=== PATIENT | male | born 1945 | race Caucasian/White ===

== ENCOUNTER 2019-09-12 07:45 | Outpatient (CLI) | payer MEDICARE, SELFPAY ==
--- NOTE | ~2019-09-12 | CT_ITS ---
EXAMINATION: CT abdomen pelvis w con DATE: 09/12/2019 08:47 INDICATION: Prostate cancer TECHNIQUE: Computed tomography (CT) of the abdomen and pelvis was performed with 100 cc Omnipaque 350 intravenous contrast. Automated exposure control and iterative reconstruction technique were employe d. Exam dose: 396.96 mGy-cm total exam DLP. COMPARISON: None. FINDINGS: The lung bases are clear. Borderline heart size. Coronary artery atherosclerotic calcification. No pericardial or pleural effus ion. Small sliding hiatal hernia. The liver, gallbladder, bile ducts, spleen, pancreas and pancreatic duct as well as adrenal glands an d kidneys are unremarkable. There is mild atherosclerotic calcification of the abdominal aorta and il iac arteries but no aneurysm. No intraperitoneal or retroperitoneal or pelvic mass lesion or adenopat hy or ascites. Normal appendix. There is diverticulosis of left and right colon; no CT evidence of diverticulitis. N o bowel obstruction or intraperitoneal free air. There is prostate enlargement and calcification and mild diffuse thickening of the urinary bladder, l ikely due to some bladder outlet obstruction. Bilateral fat-containing inguinal hernias, larger on the left. There is mild to moderate anterior wedge compression fracture deformity of L1. There is severe degenerative disease at L1-2 associated mild retrolisthesis. There is moderately prom inent degenerative disc disease of the remainder of the lumbar and lumbosacral spine. There is prominent degenerative change at the apophyseal joints of the lumbar area with associated gr selina 1 anterolisthesis at L4-5. Degenerative spurring of the lower thoracic spine. Bilateral hip osteoarthritis, greater on the right. IMPRESSION: Diverticulosis of left and right colon; no CT evidence of diverticulitis Small sliding hiatal hernia Bilateral fat-containing inguinal hernias, larger on the left Degenerative changes of thoracic and lumbar spine, bilateral hips Reviewed, dictated and finalized at [facility]. Reviewed, dictated and finalized at location B. 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
--- NOTE | ~2019-09-12 | XR_ITS ---
EXAMINATION: XR chest 2V EXAM DATE: 09/12/2019 08:15 INDICATION: Prostate cancer. TECHNIQUE: Frontal and lateral projections of the chest obtained and reviewed. There is no prior reno dy for comparison. FINDINGS: The lungs are clear. There are no pleural effusions. The cardiomediastinal silhouette is within normal limits. There is no pneumothorax suspected. Mild to moderate thoracic spondylosis. T here are no osteoblastic or osteolytic lesions identified. IMPRESSION: Unremarkable chest x-ray exam. Reviewed, dictated and finalized at location A. 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
--- NOTE | ~2019-09-12 | NM_ITS ---
EXAMINATION: NM bone scan whole body DATE: 09/12/2019 11:58 INDICATION: Prostate cancer. TECHNIQUE: 25.4 mCi Tc-99m HDP was administered intravenously. Delayed whole-body scintigrams were o btained. COMPARISON: CT abdomen and pelvis 09/12/2019 FINDINGS: There is disc-centered increased activity in the upper lumbar spine and thoracic spine stephanie elating with severe degenerative disc disease by CT. There is joint-centered increased activity in th e knees, hands and wrists, shoulders, and sternoclavicular joints without radiographic comparison, li lorenzo osteoarthritis. IMPRESSION: 1. No evidence of metastatic disease. Reviewed, dictated and finalized at location A. GRAPHICAL SURVEYOR
[2019-09-12 08:37] LABS: Blood Urea Nitrogen 21 mg/dL (8-26); Estimated Glomerular Filt Rate > 60
== END 2019-09-12 07:46 | disposition home or self-care (01) ==
LOC: ANHIMG 07:57
PROVIDERS: PCP Family Medicine; Visit Provider Urology
DX: C61 Malignant neoplasm of prostate (principal); K44.9 Diaphragmatic hernia without obstruction or gangrene; K57.30 Diverticulosis of large intestine without perforation or abscess without bleeding; K40.20 Bilateral inguinal hernia, without obstruction or gangrene, not specified as recurrent; M51.36 Other intervertebral disc degeneration, lumbar region; M16.0 Bilateral primary osteoarthritis of hip
CPT/HCPCS: 71046; 74177; 78306; A9561; Q9967

== ENCOUNTER 2019-11-08 08:00 | Day surgery (SDC) | payer MEDICARE, SELFPAY ==
[2019-10-31 15:36] VITALS: BMI 22.5
--- NOTE | 2019-11-05 16:59 | P.HP_ITS ---
History of Present Illness History of Present Illness Consent: Risks, benefits, and alternatives have been discussed and questions answered. Patient agrees to proceed with procedure. Chief complaint: Prostate Ca Narrative: Stef Lau is a 74 year old male with clinically localize adenocarcinoma of prostate, scheduled for definitive pelvic IMRT. He's opted for placement of SpaceOAR to minimize risk of rectal irritation. Review of Systems Cardiovascular: Cardiovascular: Denies chest pain, Denies lightheadedness, Denies palpitations and Denies dyspnea Respiratory: Respiratory: Denies dyspnea Gastrointestinal: Gastrointestinal: Denies diarrhea, Denies nausea and Denies vomiting Genitourinary: Genitourinary: Denies hematuria and Denies dysuria Endocrine: Endocrine: Denies palpitations PMFSH Family History Family History Father Cerebrovascular accident Mother Family history of heart disease in male family member before age 55 Patient's mother is Social History Social History Smoking status: Never smoker Alcohol intake: never Meds Home Medications and Allergies Home Medications Medication Instructions Recorded Confirmed Type amlodipine-benazepril 1 cap PO DAILY 10/31/19 10/31/19 History aspirin 81 mg PO DAILY 10/31/19 10/31/19 History atorvastatin 10 mg PO DAILY 10/31/19 10/31/19 History dutasteride 0.5 mg PO DAILY 10/31/19 10/31/19 History metformin 500 mg PO BID 10/31/19 10/31/19 History tamsulosin 0.4 mg PO DAILY 10/31/19 10/31/19 History Allergies Allergy/AdvReac Type Severity Reaction Status Date / Time No Known Allergies Allergy Verified 10/31/19 15:53 Exam Const: General: no acute distress Resp: Effort & Inspection: normal respiratory effort GI: Inspection: non-distended GI Palp: No abdominal tenderness and No Guarding due to palpation present (GI) Auscultation: normal bowel sounds Assessment and Plan Assessment and plan (1) Prostate cancer: Code(s): C61 - Malignant neoplasm of prostate Status: Acute Assessment and Plan: * Placement of SpaceOAR. * Alternative treatment options (including active surveillance, radiation therapy in its various forms and androgen ablation) have been discussed. We've also discussed complications of this procedure including, but not limited to, failure to control his cancer, adverser cardiopulmonary events, rectal injury, need to convert to an open procedure, urinary incontinence and erectile dysfunction.
--- NOTE | 2019-11-08 06:24 | ECG_ITS ---
Measurements Intervals [place] Rate: 52 P: 20 AR: 256 QRS: 11 QRSD: 107 T: 9 QT: 414 QTc: 386 Interpretive Statements SINUS BRADYCARDIA WITH FIRST DEGREE AV BLOCK INCOMPLETE RIGHT BUNDLE BRANCH BLOCK BASELINE ARTIFACT- I, II, III, AVL, AVF ABNORMAL ECG Electronically Signed On 11-08-2019 8:45:49 CDT by Dariel Talavera D.O.
[2019-11-08 06:56] VITALS: BP 130/71; PULSE 58; RESP 18; TEMP 36.4; O2SAT 99
[2019-11-08] MEDS: LACTATED RINGERS 1,000 ML 30 ML IV CONT (07:20)
[2019-11-08 07:23] LABS: Glucose Point of Care 178 (65-105)
--- NOTE | 2019-11-08 07:42 | WPDHPUPDATE1 ---
History and Physical Update Update Date/Time: 11/08/19 07:42 History and Physical has been reviewed, including an updated exam of the patient. There are NO changes in the patient's condition. Risks, benefits, and alternatives have been discussed and questions answered. Patient agrees to proceed with procedure.
--- NOTE | 2019-11-08 07:47 | WPDANESEPPF ---
Anes - Initial Pre Proc Eval Procedure: Operation Date: 11/08/19 08:30 Proposed Procedures p Insertion SpaceOAR Hydrogel System - Justice Mcintyre MD Date/Time: 11/08/19 07:47 Surgeon: Justice Mcintyre MD Pre Op Diagnosis: Prostate Ca Patient Data Age: 74 Gender: M Height: 5 ft 7 in Weight: 67.7 kg Last Vital Signs Temp 36.4 C 11/08/19 06:56 Pulse 58 L 11/08/19 06:56 Resp 18 11/08/19 06:56 BP 130/71 11/08/19 06:56 Pulse Ox 99 11/08/19 06:56 Allergies Allergy/AdvReac Type Severity Reaction Status Date / Time No Known Allergies Allergy Verified 11/08/19 06:52 Home Medications Medication Instructions Recorded Confirmed Type amlodipine-benazepril 1 cap PO DAILY 10/31/19 11/08/19 History aspirin 81 mg PO DAILY 10/31/19 11/08/19 History atorvastatin 10 mg PO DAILY 10/31/19 11/08/19 History dutasteride 0.5 mg PO DAILY 10/31/19 11/08/19 History metformin 500 mg PO BID 10/31/19 11/08/19 History tamsulosin 0.4 mg PO DAILY 10/31/19 11/08/19 History Laboratory Tests 11/08/19 11/08/19 07:05 07:20 Sodium Pending Potassium Pending Chloride Pending Carbon Dioxide Pending BUN Pending Creatinine Pending Estim Creat Clear Calc Pending Estimated GFR Pending Glucose Pending POC Capillary Glucose 178 mg/dl H mg/dl (65-105) Calcium Pending Patient hx anesthesia problems: none Family hx anesthesia problems: none [facility] Past Medical History Medical History (Updated 11/08/19 @ 07:47 by Fili Doherty MD) HTN (hypertension) Hyperlipidemia MISTI (obstructive sleep apnea) Family History Family History Father Cerebrovascular accident Mother Family history of heart disease in male family member before age 55 Patient's mother is Social History Social History Smoking status: Never smoker Alcohol intake: never Anes - Eval Final PreProcedure Day of Procedure 11/08/19 07:47 Patient weight: normal Heart: regular rate and rhythm Lungs: clear to auscultation Airway: Mallampati scale class II Neurological: alert and oriented Last oral intake: >/= 8 hours ASA classification: III Emergent: no Anesthetic plan: proceed Anesthesia type and monitoring: general LMA and standard monitoring Informed Consent: The patient's anesthetic plan and its attendant risks and benefits were discussed with the patient/family/POA. Questions were solicited and answers provided to the satisfaction of the patient/family/POA.
[2019-11-08 07:57] LABS: Blood Urea Nitrogen 21 mg/dL (9-20); Calcium 9.1 mg/dL (8.4-10.2); Carbon Dioxide 26 mmol/L (22-30); Chloride 105 mmol/L (98-107); Estimated CRCL calculation 68 ml/min; Estimated Glomerular Filt Rate > 60; Glucose 171 mg/dL (75-110); Potassium 4.3 mmol/L (3.4-5.0); Sodium 137 mmol/L (137-145)
[2019-11-08] MEDS: ceFAZolin 2 GM/D5W 50 ML 2 GM/50 ML BAG IVPB (08:06)
--- NOTE | 2019-11-08 08:36 | SUR.OPER ---
ebl:0cc
[2019-11-08 08:44] VITALS: BP 114/58; PULSE 69; RESP 16; TEMP 36.1; O2SAT 98
[2019-11-08 09:00] VITALS: BP 113/57; PULSE 54; RESP 14; O2SAT 97
--- NOTE | 2019-11-08 09:04 | PM.PROC ---
Procedure Note - Detailed Date of procedure: 11/08/19 Pre-op diagnosis: Prostate Ca Post-op diagnosis: same Procedure performed: SpaceOAR placement Description of procedure: This patient has been diagnosed with prostate cancer. Patient has met with a radiation oncologist who has prescribed a course of radiation for treatment of the malignancy. Please refer to the Radiation Oncologist's note for radiation method, dose, number of fractions. After discussing with the radiation oncologist and the patient, it has been agreed upon to proceed with SpaceOAR placement. The purpose of SpaceOAR is to reduce rectal irradiation during radiation therapy by placing an absorbable polyethylene glycol (PEG) hydrogel (SpaceOAR) into perirectal fat space, thereby pushing the rectum away from the prostate. Prior to the procedure, a timeout was performed confirming the patient's identity and planned the procedure. Anesthesia was induced without complication. Antibiotics were administered prophylactically, and the patient completed an enema at home prior to the procedure. The patient was positioned in the dorsal lithotomy position. A transrectal ultrasound probe was inserted per rectum with clear visualization of the prostatic base and apex. A bilateral pudendal nerve block was performed using a standard technique (1% lidocaine solution). The needle was advanced to the mid-perineum region and an adequate dose of Lidocaine was injected. Once this area became anesthetized, the needle was advanced until it was proximal to the pudendal nerve, and an additional dose of Lidocaine was injected. Once the area was adequately anesthetized placement of Fiducials/SpaceOAR commenced. Using transperineal ultrasound needle guidance, 3 gold fiducial markers were placed within the prostatic parenchyma. The target locations were Right Base, Left Mid, and Right [place]. Ultrasound confirmed their proper location at the conclusion of placement. With these markers in place, we proceeded on to the SpaceOAR portion of the procedure. Using ultrasound guidance, an axial measurement of the space between the prostate (mid gland) and rectum was noted and measured [##mm]. SpaceOAR hydrogel was prepared as described in the container packer operator?s 'Instructions For Use'. Under transrectal ultrasound guidance, a 15 cm 18G needle was inserted, transperineal, through the rectourethralis muscle and the needle tip advanced into the perirectal fat posterior to the prostate. The needle position, and downward bevel, were confirmed in both sagittal and axial hill. 3-5cc of Sterile Saline was used to hydro-dissect the space between the Denonvilliers? fascia and anterior rectal wall. Aspiration did not yield any bleeding. With the needle tip at mid gland, the axial field was viewed to confirm the needle was not in the rectal wall -- movement of the needle tip without corresponding movement of the rectal wall confirmed perirectal placement. The assembled SpaceOAR delivery system was then attached to the 18G needle. Under ultrasound guidance in the sagittal plane, a smooth, continuous injection technique was used to dispense all 10cc of the SpaceOAR hydrogel into the space between the prostate and rectum. Optimal visualization of the needle during hydrogel administration was maintained at all times. An axial measurement of the space between the prostate (mid gland) and rectum immediately post-SpaceOAR injection was noted and measured 10mm. No suspected penetration or compromise of the rectal wall occurred. Implants: SpaceOAR gel Anesthesia: GLMA Surgeon: Justice Mcintyre MD Estimated blood loss (mL): 0 Drains: No Packing: No Pathology: none sent Complications: No immediate complications Condition: stable Disposition: PACU
--- NOTE | 2019-11-08 09:13 | SUR.PHASEI ---
DR. MARRUFO HERE AT BEDSIDE TO SEE PT
[2019-11-08 09:15] VITALS: BP 119/61; BP 136/56; PULSE 52; PULSE 76; RESP 12; RESP 16; O2SAT 100; O2SAT 97
[2019-11-08 09:45] VITALS: BP 133/58; PULSE 55; RESP 16; O2SAT 100
== END 2019-11-08 10:00 | disposition home or self-care (01) ==
PROVIDERS: Anesthesiology; PCP Family Medicine; Visit Provider Urology
PROC: (CPT 55874; principal; 2019-11-08 08:30)
DX: C61 Malignant neoplasm of prostate (principal); I10 Essential (primary) hypertension; E78.5 Hyperlipidemia, unspecified; G47.33 Obstructive sleep apnea (adult) (pediatric); Z79.82 Long term (current) use of aspirin; Z79.84 Long term (current) use of oral hypoglycemic drugs
CPT/HCPCS: 55874; 36415; 80048; 93005; A9270; J0690; J2001; J2704; J7120

== ENCOUNTER 2019-11-14 08:23 | Outpatient (CLI) | payer MEDICARE, SELFPAY ==
[2019-11-14 09:04] LABS: Basophils Absolute Auto 0.1 K/mm3 (0.0-0.1); Basophils Percent Auto 0.9 % (0.2-1.2); Eosinophils Absolute Auto 0.1 K/mm3 (0-0.3); Eosinophils Percent Auto 1.8 % (0-4.4); Hematocrit 43.2 % (42.0-52.0); Hemoglobin 14.2 g/dL (14.0-18.0); Immature Granulocyte Absolute 0.01 K/mm3 (0.00-0.031); Immature Granulocyte Percent A 0.2 % (0-0.5); Lymphocytes Absolute Auto 1.41 K/mm3 (0.9-3.2); Mean Corpuscular HGB Conc 32.9 g/dl (32-36); Mean Corpuscular Hemoglobin 30.7 pg (26-34); Mean Corpuscular Volume 93.3 fl (80-100); Mean Platelet Volume 11.3 fl (7.4-10.4); Monocytes Absolute Auto 0.6 K/mm3 (0.1-0.6); Monocytes Percent Auto 9.9 % (2.6-8.5); Neutrophils Absolute Auto 3.5 K/mm3 (1.3-6.7); Neutrophils Percent Auto 62.2 % (45.5-73.1); Platelet Count Result 164 k/mm3 (150-375); Red Blood Count 4.63 M/mm3 (4.6-6.20); Red Cell Distribution Width 11.9 % (11.5-14.5); White Blood Count 5.6 K/mm3 (4.5-10.0)
[2019-11-14 09:15] LABS: Alanine Aminotransferase 19 U/L (4-50); Albumin Level 4.4 g/dL (3.5-5.1); Alkaline Phosphatase 61 U/L (38-126); Aspartate Amino Transferase 21 U/L (17-59); Bilirubin,Total 0.7 mg/dL (0.2-1.3); Blood Urea Nitrogen 19 mg/dL (9-20); Calcium 9.8 mg/dL (8.4-10.2); Carbon Dioxide 28 mmol/L (22-30); Chloride 106 mmol/L (98-107); Estimated Glomerular Filt Rate > 60; Glucose 168 mg/dL (75-110); Potassium 4.3 mmol/L (3.4-5.0); Sodium 140 mmol/L (137-145)
[2019-11-14 09:39] LABS: Add Urine Microscopic? YES; Appearance Urine Clear (Clear); Bilirubin Urine Negative (Negative); Blood Urine 1+ (Negative); Color Urine Yellow (Yellow); Glucose Urine UA 1+ mg/dL (Negative); Ketones Urine Negative (Negative); Leukocyte Esterase Ur Trace LEU/UL (NEGATIVE); Mucus Urine Rare /lpf; Nitrate Urine Negative (Negative); Protein Urine Negative (Negative); RBC Urine 0-2 /hpf (0-2); Urobilinogen Urine Negative mg/dL (<2.0)
== END 2019-11-14 08:24 | disposition home or self-care (01) ==
PROVIDERS: PCP Family Medicine; Visit Provider Radiology Radiation Oncology
DX: C61 Malignant neoplasm of prostate (principal)
CPT/HCPCS: 36415; 80053; 81001; 85025

== ENCOUNTER 2019-11-20 08:56 | Outpatient (CLI) | payer MEDICARE, SELFPAY ==
--- NOTE | ~2019-11-20 | MR_ITS ---
EXAMINATION: MR pelvis wo/w con INDICATION: Prostate cancer TECHNIQUE: Coronal SSFSE ARC, Axial and Coronal 2D FIESTA FatSat, Axial T2 FS, Axial SSFSE BH ARC, Ax ial 3D DualEcho BH, Axial SSFSE-IR Timothy, Axial DWI b=600, pre and dynamic postcontrast Axial LAVA ARC, WATER:POST Cor LAVA-FLEX COMPARISON: CT, 09/12/2019 CONTRAST: Multihance, 13 cc FINDINGS: A 3.5 x 1.0 cm fluid collection positioned between the rectum and prostate likely reflects biopsy change. Additionally, there are punctate T1 hyperintense foci in the prostate which also likel y reflect biopsy change. There are no pathologically enlarged pelvic lymph nodes. Colonic diverticulo sis is present without evidence of diverticulitis. There is a fat-containing left inguinal hernia. Th ere are no dilated loops of bowel. IMPRESSION: 1. Changes of prostate biopsy without evidence of acute abnormality or metastatic disease. Reviewed, dictated and finalized at location B. IMPRESSION: 1. Changes of prostate biopsy without evidence of acute abnormality or metastat ic disease.
[2019-11-20 09:47] LABS: Estimated Glomerular Filt Rate > 60
== END 2019-11-20 08:57 | disposition home or self-care (01) ==
PROVIDERS: PCP Family Medicine; Visit Provider Radiology Radiation Oncology
DX: C61 Malignant neoplasm of prostate (principal)
CPT/HCPCS: 36415; 72197; A9577

== ENCOUNTER 2021-01-25 18:43 | Emergency (ER) | payer MEDICARE, SELFPAY ==
[2021-01-25 18:48] VITALS: BP 171/82; PULSE 69; RESP 18; TEMP 36.6; O2SAT 100
[2021-01-25 20:16] LABS: Add Urine Microscopic? YES; Appearance Urine Cloudy (Clear); Bilirubin Urine Negative (Negative); Blood Urine 3+ (Negative); Color Urine Red (Yellow); Glucose Urine UA 3+ mg/dL (Negative); Ketones Urine Trace mg/dL (Negative); Leukocyte Esterase Ur Negative LEU/UL (Negative); Nitrate Urine Negative (Negative); Protein Urine 3+ mg/dL (Negative); RBC Urine >75 /hpf (0-2); Urobilinogen Urine Negative mg/dL (<2.0); WBC Urine 0-3 /hpf
[2021-01-25 20:19] LABS: Specific Grav Ur 1.032 (1.001-1.035)
[2021-01-25 21:22] VITALS: BP 173/69; PULSE 63; RESP 20; O2SAT 98
[2021-01-25] MEDS: NITROFURANTOIN MONOHYD MACROCR 100 MG CAP PO (22:00)
--- NOTE | 2021-01-25 22:04 | ED.MALEGU ---
HPI - Male Genitourinary General Chief complaint: Urogenital-Male Stated complaint: hematuria Time Seen by Provider: 01/25/21 19:35 Source: patient and family Mode of arrival: ambulatory Limitations: no limitations History of Present Illness HPI Narrative: 76-year-old male Here for hematuria Patient had a history of prostate cancer that was treated last year with radiation He did well Developed urinary retention and hematuria starting yesterday, possible clots Triple-lumen [place] catheter was placed in the ER here with about 450 cc of grossly bloody urine out Related Data Home Medications Medication Instructions Recorded Confirmed amlodipine-benazepril 1 cap PO DAILY 10/31/19 11/08/19 aspirin 81 mg PO DAILY 10/31/19 11/08/19 atorvastatin 10 mg PO DAILY 10/31/19 11/08/19 dutasteride 0.5 mg PO DAILY 10/31/19 11/08/19 metformin 500 mg PO BID 10/31/19 11/08/19 tamsulosin 0.4 mg PO DAILY 10/31/19 11/08/19 Allergies Allergy/AdvReac Type Severity Reaction Status Date / Time No Known Allergies Allergy Verified 01/25/21 18:48 Review of Systems Constitutional: Constitutional: Denies fever(s) Gastrointestinal: Gastrointestinal: Denies diarrhea, Denies nausea and Denies vomiting Genitourinary: Genitourinary: Reports hematuria, Reports oliguria and Reports dysuria Neurologic: Denies dizziness and Denies syncope Hematologic/Lymphatic: Hematologic/Lymphatic: Denies easy bleeding and Denies easy bruising [facility] Past Medical History Medical History (Updated 01/25/21 @ 22:05 by Speedy Luther MD) HTN (hypertension) Hyperlipidemia MISTI (obstructive sleep apnea) Family History Family History Father Cerebrovascular accident Mother Family history of heart disease in male family member before age 55 Patient's mother is Social History Social History Smoking status: Never smoker Alcohol intake: never Gender identity (if verbalized by the patient): Male Exam Const: General: cooperative, no acute distress and alert Orientation/consciousness: patient oriented x3 (alert) HENMT: Head: normal to inspection, normocephalic and atraumatic Ears: external ears normal General nose exam: no epistaxis Neck: Neck: supple and no JVD Resp: Effort & Inspection: normal respiratory effort and not labored Auscultation: other (BS =) GI: Inspection: non-distended GI Palp: Yes Soft to palpation, No Tenderness to palpation present (GI), No Guarding due to palpation present (GI) and No Rebound tenderness present : Male General Exam: Yes normal external exam Skin: General skin exam: normal color and no rashes or lesions noted Neuro: General: patient oriented x3 (alert) Extrem: General: normal to inspection and no pedal edema Psych: Affect: normal affect Course Course Emergency Course: Discussed with on-call, recommend maintaining the catheter in place, follow-up in the office in 1 or 2 days Vital Signs Vital signs: Vital Signs Temperature 36.6 C 01/25/21 18:48 Pulse Rate 69 01/25/21 18:48 Respiratory Rate 18 01/25/21 18:48 Blood Pressure 171/82 H 01/25/21 18:48 Pulse Oximetry 100 01/25/21 18:48 Temperature 36.6 C 01/25/21 18:48 Pulse Rate 63 01/25/21 21:22 Respiratory Rate 20 01/25/21 21:22 Blood Pressure 173/69 H 01/25/21 21:22 Pulse Oximetry 98 01/25/21 21:22 MDM - Male Genitourinary Lab Data Labs: Lab Results 01/25/21 Range/Units 19:59 Urine Color Red H (Yellow) Urine Appearance Cloudy H (Clear) Urine pH 7.0 (5.0-9.0) Ur Specific [place] 1.032 (1.001-1.035) Urine Protein 3+ H (Negative) mg/dL Urine Glucose (UA) 3+ H (Negative) mg/dL Urine Ketones Trace (Negative) mg/dL Ur Blood (Man) 3+ H (Negative) Urine Nitrate Negative (Negative) Urine Bilirubin Negative (Negative) Urine Urobi
[2021-01-25 22:51] VITALS: BP 182/84; PULSE 74; RESP 20; O2SAT 99
== END 2021-01-25 22:53 | disposition home or self-care (01) ==
PROVIDERS: Emergency Provider Emergency Medicine; PCP Family Medicine
DX: R31.9 Hematuria, unspecified (principal); R33.9 Retention of urine, unspecified; I10 Essential (primary) hypertension; E78.5 Hyperlipidemia, unspecified; G47.33 Obstructive sleep apnea (adult) (pediatric); Z92.3 Personal history of irradiation; Z85.46 Personal history of malignant neoplasm of prostate
CPT/HCPCS: 51702; 81001; 99283; A9270

== ENCOUNTER 2021-01-28 06:54 | Emergency (ER) | payer MEDICARE, SELFPAY ==
[2021-01-28 06:59] VITALS: BP 158/69; PULSE 94; RESP 20; TEMP 36.6; O2SAT 97
--- NOTE | 2021-01-28 07:45 | PC.NURSE ---
Pt. catheter no longer flowing urine output. Irrigated catheter with a 60cc syringe with success. Multiple blood clots found.
--- NOTE | 2021-01-28 07:55 | ED.MALEGU ---
HPI - Male Genitourinary General Chief complaint: Urogenital-Male Stated complaint: brizuela won't drain Time Seen by Provider: 01/28/21 07:25 Source: patient and family Mode of arrival: ambulatory Limitations: no limitations History of Present Illness HPI Narrative: 76 years old white male came to the emergency room because clogged Brizuela catheter. Patient had Brizuela catheter placement 4 days ago, for urinary retention, history of prostatic cancer with radiation therapy. Currently patient on Macrobid. Related Data Home Medications Medication Instructions Recorded Confirmed amlodipine-benazepril 1 cap PO DAILY 10/31/19 11/08/19 aspirin 81 mg PO DAILY 10/31/19 11/08/19 atorvastatin 10 mg PO DAILY 10/31/19 11/08/19 dutasteride 0.5 mg PO DAILY 10/31/19 11/08/19 metformin 500 mg PO BID 10/31/19 11/08/19 tamsulosin 0.4 mg PO DAILY 10/31/19 11/08/19 Allergies Allergy/AdvReac Type Severity Reaction Status Date / Time No Known Allergies Allergy Verified 01/25/21 18:48 Review of Systems Review of Systems: Narrative: CONSTITUTIONAL: Denies fever, chills, or sweats. EYES: Denies visual changes, redness, or discharge. ENT: Denies rhinorrhea, congestion, sore throat, or otalgia. CARDIOVASCULAR: Denies chest pain, palpitations, or edema. RESPIRATORY: Denies cough or dyspnea. GASTROINTESTINAL: Denies abdominal pain, nausea, vomiting, or diarrhea. GENITOURINARY: Denies dysuria or hematuria. SKIN: Denies rash or itching. MUSCULOSKELETAL: Denies back pain, joint pain, or myalgia. NEUROLOGIC: Denies headache, numbness, or weakness. PSYCHIATRIC: Denies anxiety or depression. COUNTS INCLUDE 234 BEDS AT THE [facility] Past Medical History Medical History HTN (hypertension) Hyperlipidemia MISTI (obstructive sleep apnea) Family History Family History Father Cerebrovascular accident Mother Family history of heart disease in male family member before age 55 Patient's mother is Social History Social History Smoking status: Never smoker Alcohol intake: never Gender identity (if verbalized by the patient): Male Exam Narrative: Exam Narrative: General appearance: Well-developed, well-nourished Skin: Normal color Head: Normocephalic, nontraumatic Eyes: Clear conjunctiva ENT: Oropharynx normal, ears normal, nose normal Neck: Supple, nontender Chest and respiratory: Airway patent, no respiratory distress, no accessory muscle use Heart: Regular rate/rhythm Abdomen: Soft, nontender, no organomegaly, quiet bowel sounds. When I saw the patient the Brizuela catheter was already flushed and currently patient feeling great becoming urine in the catheter is clear and yellow Vascular: Normal peripheral pulses, normal capillary refill. Musculoskeletal: Normal range of motion, nontender back Neurologic: Alert and oriented ?3, BALANCE WEIGHER is normal as tested, no gross motor deficit Course Course Emergency Course: Stable, improved Vital Signs Vital signs: Vital Signs Temperature 36.6 C 01/28/21 06:59 Pulse Rate 94 01/28/21 06:59 Respiratory Rate 20 01/28/21 06:59 Blood Pressure 158/69 H 01/28/21 06:59 Pulse Oximetry 97 01/28/21 06:59 Temperature 36.6 C 01/28/21 06:59 Pulse Rate 94 01/28/21 06:59 Respiratory Rate 20 01/28/21 06:59 Blood Pressure 158/69 H 01/28/21 06:59 Pulse Oximetry 97 01/28/21 06:59 MDM - Male Genitourinary MDM Narrative Medical decision making narrative: Urine retention secondary to blood clots is my concern. Urine drain got better after flushing the catheter. The nurse
[2021-01-28 08:24] VITALS: BP 155/79; PULSE 79; RESP 18; O2SAT 96
[2021-01-28 08:27] LABS: Add Urine Microscopic? YES; Appearance Urine Clear (Clear); Bacteria Urine Trace /hpf; Bilirubin Urine Negative (Negative); Blood Urine 3+ (Negative); Color Urine Amber (Yellow); Glucose Urine UA 3+ mg/dL (Negative); Ketones Urine 2+ mg/dL (Negative); Leukocyte Esterase Ur Negative LEU/UL (Negative); Mucus Urine Rare /lpf; Nitrate Urine Positive (Negative); Protein Urine 2+ mg/dL (Negative); RBC Urine >75 /hpf (0-2); Specific Grav Ur 1.028 (1.001-1.035); Squamous Epithelial Cell Urine Rare /hpf (Few)
== END 2021-01-28 08:25 | disposition home or self-care (01) ==
PROVIDERS: Emergency Provider Emergency Medicine; PCP Family Medicine
DX: T83.9XXA Unspecified complication of genitourinary prosthetic device, implant and graft, initial encounter (principal); R33.9 Retention of urine, unspecified; I10 Essential (primary) hypertension; E78.5 Hyperlipidemia, unspecified
CPT/HCPCS: 81001; 99282

== ENCOUNTER 2021-09-09 12:34 | Emergency (ER) | payer MEDICARE, SELFPAY ==
--- NOTE | ~2021-09-09 | XR_ITS ---
XR humerus RT DATE: 09/09/2021 13:09 INDICATION: Slipped on ice. Proximal right humerus pain TECHNIQUE: AP and lateral views COMPARISON: None FINDINGS: Diffuse osteopenia. There is a comet fracture of the right humeral head and surgical neck. There is limited examination of the elbow joint. No obvious fracture or dislocation is noted in this area but if there is any concern for elbow injury, plain elbow radiographs would be advised. IMPRESSION: Comminuted fracture of the right humeral head and neck Reviewed, dictated and finalized at location [facility]. [facility]
--- NOTE | ~2021-09-09 | XR_ITS ---
XR shoulder RT min 2V DATE: 09/09/2021 13:09 INDICATION: Slipped on ice. Proximal right humerus pain. TECHNIQUE: 3 views COMPARISON: September 09, 2021 right humerus FINDINGS: There is a comminuted fracture of the right humeral head and surgical neck with impaction. Diffuse osteopenia There is widening of the right acromion clavicular joint, likely due to prior resection of the distal lateral clavicle. IMPRESSION: Comminuted fracture of right humeral head and surgical neck Reviewed, dictated and finalized at location B. [facility]
[2021-09-09 12:46] VITALS: PULSE 62; RESP 16; TEMP 36.3; O2SAT 100
[2021-09-09] MEDS: HYDROcodone/acetaminophen (*CRX) 5-325 MG TABLET 1 TAB PO (13:38)
--- NOTE | 2021-09-09 13:57 | ED.GENADULT ---
HPI - General Adult General Chief complaint: Fall Stated complaint: right shoulder injury Time Seen by Provider: 09/09/21 12:47 Source: patient Mode of arrival: ambulatory Limitations: no limitations History of Present Illness HPI narrative: Patient is 76-year-old male with chief complaint of pain to his right shoulder and abrasions to the left side of his face that he sustained after falling directly onto the lateral aspect of the right shoulder while trying to shovel snow. Patient states he began to roll and scraped his face. Patient denies loss of consciousness, headache, changes to vision or hearing or any neurological deficits. He denies chest pain or shortness of breath. Patient reports that a snow plower saw him fall and ran over to immediately help him up. He states he is unable to move the shoulder due to pain. He denies prior fractures. He denies bleeding ir drainage from his orifices. He denies any other injuries or concerns. Patient is not on any blood thinners. Related Data Home Medications Medication Instructions Recorded Confirmed amlodipine-benazepril 1 cap PO DAILY 10/31/19 11/08/19 aspirin 81 mg PO DAILY 10/31/19 11/08/19 atorvastatin 10 mg PO DAILY 10/31/19 11/08/19 dutasteride 0.5 mg PO DAILY 10/31/19 11/08/19 metformin 500 mg PO BID 10/31/19 11/08/19 tamsulosin 0.4 mg PO DAILY 10/31/19 11/08/19 Allergies Allergy/AdvReac Type Severity Reaction Status Date / Time No Known Allergies Allergy Verified 09/09/21 12:50 Review of Systems Review of Systems: CONSTITUTIONAL: Denies fever, chills, or sweats. EYES: Denies visual changes, redness, or discharge. ENT: Denies rhinorrhea, congestion, sore throat, or otalgia. CARDIOVASCULAR: Denies chest pain, palpitations, or edema. RESPIRATORY: Denies cough or dyspnea. GASTROINTESTINAL: Denies abdominal pain, nausea, vomiting, or diarrhea. GENITOURINARY: Denies dysuria or hematuria. SKIN: Reports abrasions denies rash or itching. MUSCULOSKELETAL: Reports right shoulder pain denies back pain, joint pain, or myalgia. NEUROLOGIC: Denies headache, numbness, dizziness, or weakness. PSYCHIATRIC: Denies anxiety or depression. [facility] Past Medical History Medical History HTN (hypertension) Hyperlipidemia MISTI (obstructive sleep apnea) Family History Family History Father Cerebrovascular accident Mother Family history of heart disease in male family member before age 55 Patient's mother is Social History Social History Smoking status: Never smoker Alcohol intake: never Gender identity (if verbalized by the patient): Male Exam Narrative: GENERAL: Well-appearing, well-nourished, and in no acute distress. HEAD: Normocephalic. Abrasion and bruising noted to left brown cheek and chin. EYES: PERRLA and EOMI. ENT: Nares clear, no rhinorrhea or epistaxis. Mucous membranes moist. Oropharynx without tonsillar hypertrophy exudate or other lesions. Bilateral TMs pearly vazquez nonbulging. No hemotympanum. NECK: Supple. No tenderness to palpation. Range of motion intact. CHEST: Clear to auscultation. No respiratory distress. No wheezes rales or rhonchi HEART: Regular rate and rhythm. EXTREMITIES: No ROM to right shoulder.Pain with palpation of proximal humerus. ROM intact to elbow and distally. Family Day Carer strength intact. SKIN: See head. Warm, dry, no rash. NEURO: No focal deficits. Alert and oriented x3. PSYCH: Normal mood and affect. Course Vital Signs Vital signs: Vital Signs Temperature 97.3 F L 09/09/21 12:46 Pulse Rate 62 09/09/21 12:46 Respiratory Rate 16 09/09/21 12:46 Pulse Oximetry 100 09/09/21 12:46 Temperature 97.3 F L 09/09/21 12:46 Pulse Rate 62 09/09/21 12:46 Respiratory Rate 16 09/09/21 12:46 Pulse Oximetry 100 09/09/21 12:46 Medical Decision
== END 2021-09-09 14:48 | disposition home or self-care (01) ==
PROVIDERS: Emergency Provider Emergency Medicine; PCP Family Medicine
DX: S42.214A Unspecified nondisplaced fracture of surgical neck of right humerus, initial encounter for closed fracture (principal); I10 Essential (primary) hypertension; E78.5 Hyperlipidemia, unspecified; G47.30 Sleep apnea, unspecified; W01.0XXA Fall on same level from slipping, tripping and stumbling without subsequent striking against object, initial encounter
CPT/HCPCS: 73030; 73060; 99284; A4565; A9270

== ENCOUNTER 2022-04-22 01:04 | Day surgery (SDC) | payer MEDICARE, SELFPAY ==
[2022-04-08 15:48] VITALS: BMI 23.6
--- NOTE | 2022-04-21 10:28 | P.PNAN_ITS ---
Anes - Initial Pre Proc Eval Procedure: Operation Date: 04/22/22 10:45 Proposed Procedures p Colonoscopy - Speedy Carlson MD Date/Time: 04/21/22 10:28 Surgeon: Speedy Carlson MD Pre Op Diagnosis: occult GI bleed Patient Data Age: 77 Gender: M Height: 1.7 m Weight: 68.5 kg Allergies Allergy/AdvReac Type Severity Reaction Status Date / Time No Known Allergies Allergy Verified 04/22/22 09:22 Home Medications Medication Instructions Recorded Confirmed Type amlodipine 10 mg-benazepril 40 mg 1 cap PO DAILY 10/31/19 04/22/22 History capsule aspirin 81 mg chewable tablet 81 mg PO DAILY 10/31/19 04/22/22 History atorvastatin 10 mg tablet 10 mg PO DAILY 10/31/19 04/22/22 History metformin 500 mg tablet,extended 1,000 mg PO DAILY 10/31/19 04/22/22 History release 24 hr tamsulosin 0.4 mg capsule 0.4 mg PO DAILY 10/31/19 04/22/22 History glimepiride 1 mg tablet 1 mg PO BID 04/08/22 04/22/22 History isosorbide mononitrate 60 mg 90 mg PO DAILY 04/08/22 04/22/22 History tablet,extended release 24 hr Patient hx anesthesia problems: none Family hx anesthesia problems: none Results Review: All pre-operative results and documents have been reviewed as part of the pre- operative evaluation. [facility] Past Medical History Medical History (Updated 09/17/21 @ 12:59 by Sierra Charles) Diabetes Fracture of proximal end of right humerus HTN (hypertension) Hyperlipidemia MISTI (obstructive sleep apnea) Urinary frequency Surgical History Surgical History (Updated 09/17/21 @ 12:59 by Sierra Charles) H/O shoulder surgery RTC repair 2001 per patient questionnaire Family History Family History (Updated 09/17/21 @ 12:59 by Sierra Charles) Father Cerebrovascular accident Mother Family history of heart disease in male family member before age 55 Patient's mother is Other Hypertension Social History Social History (Updated 09/17/21 @ 13:00 by Sierra Charles) Smoking status: Never smoker Alcohol intake: never Substance use: never Substance use type: does not use Living arrangements: with family Gender identity (if verbalized by the patient): Male Spiritual care concerns: No Anes - Eval Final PreProcedure Day of Procedure 04/21/22 10:28 Patient weight: normal Heart: regular rate and rhythm Lungs: clear to auscultation and normal air movement Airway: Mallampati scale class II Neurological: alert and oriented Last oral intake: >/= 8 hours ASA classification: III Emergent: no Anesthetic plan: proceed Anesthesia type and monitoring: general GIVS and standard monitoring Results Review: All pre-operative results and documents have been reviewed as part of the pre- operative evaluation. Informed Consent: The patient's anesthetic plan and its attendant risks and benefits were discuss ed with the patient/family/POA. Questions were solicited and answers provided to the satisfaction of the patient/family/POA.
[2022-04-22 09:23] VITALS: BP 157/71; PULSE 62; RESP 18; TEMP 36.4; O2SAT 99
[2022-04-22 09:24] LABS: Glucose Point of Care 111 mg/dl (65-105)
[2022-04-22] MEDS: LACTATED RINGERS 1,000 ML 150 ML IV CONT (09:26)
--- NOTE | 2022-04-22 09:52 | PM.IMHP ---
H&P: HPI History of Present Illness Date/Time: 04/22/22 09:52 Chief Complaint: Occult blood in stool. Narrative: This is a 77-year-old white male patient who was found to have occult blood in stool. This was found on routine screening sent to in by insurance qualifyor. Patient denies any obvious bleeding. He has no abdominal pain his bowel habits are normal. Patient reports being treated for prostate carcinoma in the year 1999. At that time he received radiation therapy. Patient presents today for colonoscopy to assess occult blood in stool. Family history is noncontributory. Patient does report a past medical history of right shoulder fracture after a fall While shoveling snow.. He is currently healed but did have a shoulder replacement. Review of Systems Review of Systems: Review of systems noncontributory. [facility] Past Medical History Medical History (Updated 04/22/22 @ 09:54 by Speedy Carlson MD) Diabetes Fracture of proximal end of right humerus HTN (hypertension) Hyperlipidemia MISTI (obstructive sleep apnea) Urinary frequency Surgical History Surgical History (Updated 09/17/21 @ 12:59 by Sierra Charles) H/O shoulder surgery RTC repair 2001 per patient questionnaire Family History Family History (Updated 09/17/21 @ 12:59 by Sierra Charles) Father Cerebrovascular accident Mother Family history of heart disease in male family member before age 55 Patient's mother is Other Hypertension Social History Social History (Updated 09/17/21 @ 13:00 by Sierra Charles) Smoking status: Never smoker Alcohol intake: never Substance use: never Substance use type: does not use Living arrangements: with family Gender identity (if verbalized by the patient): Male Spiritual care concerns: No Meds Home Medications and Allergies Home Medications Medication Instructions Recorded Confirmed Type amlodipine 10 mg-benazepril 40 mg 1 cap PO DAILY 10/31/19 04/22/22 History capsule aspirin 81 mg chewable tablet 81 mg PO DAILY 10/31/19 04/22/22 History atorvastatin 10 mg tablet 10 mg PO DAILY 10/31/19 04/22/22 History metformin 500 mg tablet,extended 1,000 mg PO DAILY 10/31/19 04/22/22 History release 24 hr tamsulosin 0.4 mg capsule 0.4 mg PO DAILY 10/31/19 04/22/22 History glimepiride 1 mg tablet 1 mg PO BID 04/08/22 04/22/22 History isosorbide mononitrate 60 mg 90 mg PO DAILY 04/08/22 04/22/22 History tablet,extended release 24 hr Allergies Allergy/AdvReac Type Severity Reaction Status Date / Time No Known Allergies Allergy Verified 04/22/22 09:22 Vital Signs Vital Signs - 24 hr 04/22/22 09:23 Temperature 97.6 F Pulse Rate 62 Respiratory Rate 18 Blood Pressure 157/71 H Pulse Oximetry 99 Oxygen Delivery Room Air Exam Narrative: Physical exam reveals patient to be alert. Vital signs stable. HEENT exam is unremarkable. Patient is anicteric. Lungs are clear to auscultation and percussion. Heart is without murmur or extra sounds. Abdomen bowel sounds are present soft nontender with no organomegaly. Digital external rectal exam is normal. Assessment and Plan Assessment and plan (1) Occult blood in stools: Code(s): R19.5 - Other fecal abnormalities Status: Acute Assessment and Plan: Patient with occult blood in stool. Plan is for colonoscopy to assess at this time.
[2022-04-22 11:05] VITALS: BP 145/63; PULSE 72; RESP 27; O2SAT 91
[2022-04-22 11:15] VITALS: BP 131/100; PULSE 68; RESP 31; O2SAT 91
[2022-04-22 11:25] VITALS: BP 153/75; PULSE 62; RESP 25; O2SAT 95
== END 2022-04-22 11:37 | disposition home or self-care (01) ==
PROVIDERS: PCP Family Medicine; Visit Provider Internal Medicine Gastroenterology
PROC: 0DJD8ZZ Inspection of Lower Intestinal Tract, Via Natural or Artificial Opening Endoscopic (ICD-10-PCS; CPT 45378; principal; 2022-04-22 10:45)
DX: R19.5 Other fecal abnormalities (principal); K63.5 Polyp of colon; K57.30 Diverticulosis of large intestine without perforation or abscess without bleeding; K64.8 Other hemorrhoids; K62.89 Other specified diseases of anus and rectum; Z85.46 Personal history of malignant neoplasm of prostate; E11.9 Type 2 diabetes mellitus without complications; I10 Essential (primary) hypertension; E78.5 Hyperlipidemia, unspecified; G47.33 Obstructive sleep apnea (adult) (pediatric); Z79.82 Long term (current) use of aspirin; Z79.84 Long term (current) use of oral hypoglycemic drugs
CPT/HCPCS: 45385; 82948; 88305; J2704; J7120